=== PATIENT | female | born 1985 | race Caucasian/White ===

== ENCOUNTER 2017-06-13 12:16 | Emergency (ER) | payer SELFPAY ==
[2017-06-13 13:18] LABS: #Eosinphils 0.1 thou/uL (0.0-0.7); #Lymphocytes 1.3 thou/uL (1.20-3.40); #Monocytes 0.5 thou/uL (0.11-0.59); #Neutrophils 3.7 thou/uL (1.40-6.50); %Basophils 0.7 % (0.0-1.0); %Eosinophils 1.5 % (0.0-10.0); %Lymphocytes 22.6 % (21.0-51.0); %Monocytes 8.8 % (0.0-10.0); %Neutrophils 66.4 % (42.0-75.0); Hemoglobin 14.1 g/dL (12.0-16.0); Mean Corpuscular HGB CONC 33.7 g/dL (32.0-36.0); Mean Corpuscular Hemoglobin 31.1 pg (27.0-31.0); Mean Corpuscular Volume 92.2 fl (81.0-99.0); Platelet Count 229 thou/uL (130-400); RBC Distribution Width 12.1 % (11.5-14.5); Red Blood Cell (RBC) Count 4.53 mill/uL (4.20-5.40); White Blood Cell (WBC) Count 5.5 thou/uL (4.8-10.8)
[2017-06-13 13:38] LABS: CRP (Inflammatory) 0.86 mg/dL (= or < 0.5)
[2017-06-13 13:41] LABS: ALT (SGPT) 92 U/L (8-55); AST (SGOT) 42 U/L (5-34); Albumin 3.8 g/dL (3.5-5.0); Alkaline Phosphatase 49 U/L (40-150); Anion Gap 10 mmol/L (10-20); BUN (Urea Nitrogen) 9 mg/dL (7.0-18.7); Bilirubin, Total 0.3 mg/dL (0.2-1.2); Calc. Creatinine Clearance 0 mL/min (70-130); Calcium 8.9 mg/dL (7.8-10.44); Carbon Dioxide 23 mmol/L (22-29); Chloride 104 mmol/L (98-107); Estimated GFR-MDRD Greater than 90; Globulin 2.7 g/dL (2.4-3.5); Glucose 83 mg/dL (70-105); Lipase 19 U/L (8-78); Potassium 3.4 mmol/L (3.5-5.1); Protein, Total 6.5 g/dL (6.0-8.3); Sodium 134 mmol/L (136-145)
[2017-06-13 14:22] LABS: Bilirubin Small (Negative); Blood, Urine Negative (Negative); Clarity CLOUDY (Clear); Glucose, Urine (Dipstick) Negative (Negative); Leukocyte Moderate (Negative); Nitrite Positive (Negative); Protein, Urine (Dipstick) Trace mg/dL (Neg-Trace); Specific Gravity, Urine 1.029 (1.002-1.036); pH, Urine 5.5 (5.0-9.0)
[2017-06-13 14:29] LABS: Pregnancy Test - Urine (BHCG) Negative (Negative); Pregu Control Background? CLEAR/WHITE (CLR/WHITE); Pregu Control Bar Appear? YES (CONTROL BAR); Specific Gravity 1.029 (1.002-1.036)
[2017-06-13 14:38] LABS: Bacteria/HPF 4+ HPF (None Seen); Hyaline Casts/LPF 4-6 HYALINE CAST LPF (0-3 Hyaline); Pathc Cast-AUWi Flag 0.94 (0-2.49); WBC/HPF 21-50 HPF (0-3)
[2017-06-13 14:51] LABS: RBC/HPF 0-3 HPF (0-3)
[2017-06-13] MEDS ORDERED: Morphine 2 MG/ML SYRINGE ONE (16:09)
[2017-06-13] MEDS ORDERED: Ondansetron HCl/PF 4 MG/2 ML Vial ONE (16:09)
[2017-06-13] MEDS ORDERED: Pantoprazole 40 MG VIAL ONE (16:09)
--- NOTE | 2017-06-13 16:51 | ULT ---
GALLBLADDER ULTRASOUND: Date: 06/13/17 COMPARISON: 06/08/11. INDICATION: Right upper quadrant pain. FINDINGS: There is no evidence of focal hepatic lesion or acute gallbladder pathology. Common duct is normal at 4.0 mm. Mcguire's sign reported as negative. No ascites is seen. IMPRESSION: No acute abnormality identified within the right upper quadrant, by sonographic evaluation. POS: [facility]
== END 2017-06-13 17:28 | disposition home or self-care (01) ==
LOC: ERS 12:16
DX: R10.13 Epigastric pain (principal); N39.0 Urinary tract infection, site not specified; K58.9 Irritable bowel syndrome, unspecified; J45.909 Unspecified asthma, uncomplicated
CPT/HCPCS: 36415; 76705; 80053; 81003; 81015; 81025; 82150; 83605; 83690; 85025; 86140; 96361; 96374; 96375; C9113; J2270; J2405

== ENCOUNTER 2018-03-06 12:04 | Emergency (ER) | payer SELFPAY | END 2018-03-06 13:15 | disposition home or self-care (01) | LOC: ERS 12:04 | DX: H92.01 Otalgia, right ear (principal); J30.9 Allergic rhinitis, unspecified; K50.90 Crohn's disease, unspecified, without complications | CPT/HCPCS: 99282 ==